=== PATIENT | female | born 1960 | race Caucasian/White ===

== ENCOUNTER 2017-04-01 15:12 | Emergency (ER) | payer OTHER ==
[~2017-04-01] VITALS: Wt 113.6 kg
[~2017-04-01 15:12] MED LIST: HYD25 PO; METF-480 PO; NAPR-260 PO; PANT40TA4 PO
[2017-04-01] MEDS ORDERED: KETOROLAC 30 MG INJ IM STA (15:41)
[2017-04-01] MEDS ORDERED: NAPR-260 PO (16:40)
--- NOTE | 2017-04-01 16:49 | ERD ---
ER Documentation Chief Complaint Date/Time DATE: 04/01/17 TIME: 16:47 Chief Complaint knee, hand, back pain HPI This 56-year-old female who presents the emergency department today complaining of bilateral knee pain and pain in both of her arms. States has a history of rheumatoid arthritis. States she has been taking ibuprofen for the pain but it is worse over the past couple of days. Denies any fevers or chills.. Denies any trauma. ROS All systems reviewed and are negative except as per history of present illness. Medications Home Meds Active Scripts Naproxen* (Naprosyn*) 500 Mg Tablet, 500 MG PO BID Y for PAIN AND/OR INFLAMMATION, #30 TAB Prov:JAYSON VORA PA-C 04/01/17 Naproxen* (Naprosyn*) 500 Mg Tablet, 500 MG PO BID Y for PAIN AND/OR INFLAMMATION, #30 TAB Prov:TAO ELMORE MD 02/26/16 Pantoprazole* (Pantoprazole*) 40 Mg Tabec, 40 MG PO DAILY@06 for 30 Days Prov:KATHY TANG NP 05/30/15 Reported Medications Hydrochlorothiazide* (Hydrochlorothiazide*) 25 Mg Tab, 25 MG PO DAILY, TAB 05/28/15 Metformin* (Glucophage*) 850 Mg Tablet, 850 MG PO BID, TAB 05/28/15 Allergies Allergies: Coded Allergies: No Known Allergy (Unverified , 04/01/17) PMhx/Soc History of Surgery: Yes (tubal ligation) Anesthesia Reaction: No Hx Neurological Disorder: No Hx Respiratory Disorders: No Hx Cardiac Disorders: Yes (htn, high cholesterol) Hx Psychiatric Problems: No Hx Miscellaneous Medical Probl: Yes (dm) Hx Alcohol Use: No Hx Substance Use: No Hx Tobacco Use: No Smoking Status: Never smoker Physical Exam Vitals Vital Signs Date Time Temp Pulse Resp B/P Pulse Ox O2 Delivery O2 Flow Rate FiO2 04/01/17 15:14 98.0 20 96 133/88 98 Physical Exam Const: Obese, no acute distress Head: Atraumatic Eyes: Normal Conjunctiva ENT: Normal External Ears, Nose and Mouth. Neck: Full range of motion..~ No meningismus. Resp: Clear to auscultation bilaterally Cardio: Regular rate and rhythm, no murmurs Skin: No petechiae or rashes Back: No midline or flank tenderness Ext: No cyanosis, or edema. Full active range of motion bilateral knees and shoulder, wrist. Pulses 2+. Distal neurovascularly intact. No erythema or warmth. Neur: Awake and alert Psych: Normal Mood and Affect Results 24 hrs Current Medications Medications (Trade) Dose Ordered Sig/Julio Route PRN Reason Start Time Stop Time Status Last Admin Dose Admin Ketorolac Tromethamine (Toradol) 30 mg ONCE STAT IM 04/01/17 15:41 04/01/17 15:43 DC 04/01/17 15:48 Procedures/MDM This is a 56-year-old female who presents to the emergency department today complaining of multiple areas of pain for the past several days. Patient has history of rheumatoid arthritis. Patient's physical exam is essentially benign. She was requesting methylprednisone as her sister has taken that it has improved her pain. Patient does have a history of diabetes and I was concerned about giving her some of that and therefore I elected to give the patient a Toradol injection here. I will not send her home with anything other than Naprosyn as I do not feel that she would benefit from narcotics at this time given the length and duration of her pain that appears to be long- standing. She is afebrile and otherwise well-appearing. She has had no trauma. Low suspicion for septic joint, gout, acute fracture dislocation. Patient reported improvement after the Toradol injection. Again she was given a prescription for Naprosyn for home. She was instructed to call her primary care doctor or her animal control specialist and notified them that she came here to the emergency department has had increased pain. At this time the patient is stable for discharge and outpatient management. Patient should follow up with their PCP in the next 1-2 days. They may return to the emergency department sooner for any persistent or worsening of symptoms. Patient understood and agreed with the plan. Departure Diagnosis: Primary Impression: Pain Condition: Fair Patient Instructions: Pain Management, Reducing Knee Pain and Swelling Referrals: BRITT CARDENAS your donor specialist Additional Instructions: Llame al doctor LUISA y vijay flako ELIOT PARA DENTRO DE 1-2 CERDA.Dgale a la secretaria que nosotros le instruimos hacer esta eliot.Avise o llame si branch condicin se empeora antes de la eliot. Regresa aqui si peor o no mejor. Take Naprosyn or Tylenol or Motrin for pain JAYSON VORA PA-C Apr 01, 2017 16:49
== END 2017-04-01 16:48 | disposition home or self-care (01) ==
LOC: FTE 15:12
DX: M25.561 Pain in right knee (principal); M79.602 Pain in left arm; M79.601 Pain in right arm; M54.9 Dorsalgia, unspecified; E11.9 Type 2 diabetes mellitus without complications; I10 Essential (primary) hypertension; Z79.84 Long term (current) use of oral hypoglycemic drugs
CPT/HCPCS: 96372; J1885; Z7502